=== PATIENT | male | born 1995 | race African-American/Black ===

== ENCOUNTER 2017-05-14 21:07 | Emergency (ER) | payer SELFPAY ==
[~2017-05-14] VITALS: Ht 193 cm; Wt 95.0 kg
[2017-05-14] MEDS ORDERED: MORPHINE SULFATE 4 MG/ML CPJ (NOT FOR IM USE) IV STA (21:10)
[2017-05-14] MEDS ORDERED: ONDANSETRON HCL 4MG/2ML VIAL IV STA (21:10)
[2017-05-14] MEDS ORDERED: TETANUS, DIPHTHERIA, PERTUSSIS VAC/PF 0.5ML (>7YR OLD) IM ONE (21:15)
[2017-05-14] MEDS ORDERED: CEFAZOLIN 1000MG PREMIX 50 ML IV ONE (21:15)
[2017-05-14 21:51] VITALS: BP 114/69
== END 2017-05-14 21:30 | disposition short-term general hospital (02) ==
LOC: ER 21:07
DX: S71.101A Unspecified open wound, right thigh, initial encounter (principal); X93.XXXA Assault by handgun discharge, initial encounter; Y93.89 Activity, other specified; Y92.89 Other specified places as the place of occurrence of the external cause
CPT/HCPCS: 99285